=== PATIENT | female | born 1945 | race African-American/Black ===

== ENCOUNTER 2022-07-09 15:47 | Inpatient (IN) | payer OTHER ==
[2022-07-09 15:58] VITALS: BMI 25.8
[2022-07-09] MEDS ORDERED: VANCOMYCIN 1 GM in D5W (PRE-DOCKED) 1,000 MG/250 ML (RESTRICTED TO ID ONLY IVPB ONE (18:50)
[2022-07-09] MEDS ORDERED: PIPERACILLIN/TAZOB 4.5 GM 4.5 GM in DEXTROSE 5%-WATER 100 ML IVPB ONE (18:51)
[2022-07-09] MEDS ORDERED: PIPERACILLIN/TAZOB 4.5 GM 4.5 GM/100 ML BAG IVPB ONE (19:46)
[2022-07-09 20:19] LABS: BASO % 0.5 % (0-2.0); EOS % 0.9 % (0-4.5); HEMATOCRIT 28.2 % (32.4-45.2); HEMOGLOBIN 9.3 GM/dL (10.7-15.3); LYMPH % 10.5 % (8-40); MCH 27.6 pg (25.7-33.7); MCHC 32.9 g/dl (32.0-36.0); MEAN CELL VOLUME 83.9 fl (80-96); MEAN PLT VOLUME 8.4 fl (7.5-11.1); MONO % 6.7 % (3.8-10.2); NEUT % 81.4 % (42.8-82.8); PLATELET COUNT 240 10^3/uL (134-434); RBC 3.36 M/mm3 (3.60-5.2); WHITE BLOOD COUNT 5.3 K/mm3 (4.0-10.0)
[2022-07-09] MEDS ORDERED: VANCOMYCIN/WATER FOR INJ (PEG) 1,000 MG/200 ML BAG IVPB ONE (20:45)
[2022-07-09 20:47] LABS: ALBUMIN 2.9 g/dl (3.4-5.0); CALCIUM 8.9 mg/dL (8.5-10.1)
[2022-07-09 20:48] LABS: BLOOD UREA NITROGEN 11.8 mg/dL (7-18)
[2022-07-09 20:50] LABS: CREATININE 0.9 mg/dL (0.55-1.3)
[2022-07-09 20:52] LABS: BILIRUBIN,TOTAL 1.2 mg/dL (0.2-1)
[2022-07-09] MEDS ORDERED: ACETAMINOPHEN 325 MG TABLET (FP) PO PRN (21:51)
[2022-07-09] MEDS ORDERED: KETOROLAC TROMETHAMINE 15 MG/ML VIAL IVPUSH PRN (21:51)
[2022-07-09] MEDS ORDERED: ZINC OXIDE 20% TOPICAL OINTMENT 30 GM TUBE TP SCH (22:00)
[2022-07-10] MEDS: LEVOTHYROXINE NA 100 MCG TABLET (FP) PO SCH (06:10)
[2022-07-10] MEDS: FUROSEMIDE 40 MG/4 ML INJECTABLE VIAL IVPUSH SCH ×2 (08:20→13:38)
[2022-07-10] MEDS: ZINC OXIDE 20% TOPICAL OINTMENT 30 GM TUBE TP SCH ×2 (09:51→22:15)
[2022-07-10] MEDS: ENOXAPARIN NA (PORCINE) 40 MG/0.4 ML DISP.SYRIN SQ SCH (09:52)
[2022-07-10 09:56] LABS: HEMATOCRIT 29.5 % (32.4-45.2); HEMOGLOBIN 9.8 GM/dL (10.7-15.3); MCH 27.5 pg (25.7-33.7); MCHC 33.1 g/dl (32.0-36.0); MEAN CELL VOLUME 83.2 fl (80-96); PLATELET COUNT 264 10^3/uL (134-434); RBC 3.55 M/mm3 (3.60-5.2); RDW 15.6 % (11.6-15.6); WHITE BLOOD COUNT 5.6 K/mm3 (4.0-10.0)
[2022-07-10] MEDS ORDERED: CLINDAMYCIN 600MG PREMIX IVPB 600 MG/50 ML BAG IVPB SCH (10:00)
[2022-07-10 10:40] LABS: CALCIUM 8.8 mg/dL (8.5-10.1)
[2022-07-10 10:41] LABS: BLOOD UREA NITROGEN 9.3 mg/dL (7-18)
[2022-07-10 10:56] LABS: ERYTHROCYTE SEDIMENTATION RATE 104 mm/hr (0-30)
[2022-07-10] MEDS ORDERED: AMPICILLIN NA/SULBACTAM NA 3 GM in SODIUM CHLORIDE 100 ML IVPB SCH (11:30)
[2022-07-10] MEDS ORDERED: DOCUSATE SODIUM 100 MG CAPSULE (FP) PO PRN (14:58)
[2022-07-10] MEDS: AMPICILLIN NA/SULBACTAM NA 3 GM in SODIUM CHLORIDE 100 ML IVPB SCH (17:55)
[2022-07-10] MEDS: CLOTRIMAZOLE 1% CREAM TP SCH (22:15)
[2022-07-11] MEDS: AMPICILLIN NA/SULBACTAM NA 3 GM in SODIUM CHLORIDE 100 ML IVPB SCH ×3 (02:51→18:06)
[2022-07-11] MEDS: FUROSEMIDE 40 MG/4 ML INJECTABLE VIAL IVPUSH SCH ×2 (05:19→14:23)
[2022-07-11] MEDS: LEVOTHYROXINE NA 100 MCG TABLET (FP) PO SCH (06:21)
[2022-07-11] MEDS: ENOXAPARIN NA (PORCINE) 40 MG/0.4 ML DISP.SYRIN SQ SCH (09:11)
[2022-07-11 10:02] LABS: BASO % 0.2 % (0-2.0); EOS % 1.3 % (0-4.5); HEMOGLOBIN 9.9 GM/dL (10.7-15.3); LYMPH % 21.5 % (8-40); MCH 27.3 pg (25.7-33.7); MCHC 32.9 g/dl (32.0-36.0); MEAN CELL VOLUME 82.9 fl (80-96); MEAN PLT VOLUME 8.2 fl (7.5-11.1); PLATELET COUNT 252 10^3/uL (134-434); RBC 3.61 M/mm3 (3.60-5.2); RDW 16.1 % (11.6-15.6); WHITE BLOOD COUNT 5.1 K/mm3 (4.0-10.0)
[2022-07-11 10:14] LABS: POTASSIUM 3.9 mmol/L (3.5-5.1)
[2022-07-11 10:19] LABS: ALBUMIN 2.6 g/dl (3.4-5.0); BLOOD UREA NITROGEN 12.2 mg/dL (7-18); MAGNESIUM 1.9 mg/dL (1.8-2.4)
[2022-07-11 10:20] LABS: CALCIUM 8.5 mg/dL (8.5-10.1)
[2022-07-11 10:22] LABS: CREATININE 1.2 mg/dL (0.55-1.3)
[2022-07-11 10:24] LABS: BILIRUBIN,TOTAL 0.6 mg/dL (0.2-1); TOT PROT 8.6 g/dl (6.4-8.2)
[2022-07-11] MEDS: LIOTHYRONINE SODIUM 25 MCG TABLET PO SCH (10:33)
[2022-07-11] MEDS: ZINC OXIDE 20% TOPICAL OINTMENT 30 GM TUBE TP SCH ×2 (11:34→22:15)
[2022-07-11] MEDS: CLOTRIMAZOLE 1% CREAM TP SCH ×2 (11:34→22:15)
[2022-07-12] MEDS: AMPICILLIN NA/SULBACTAM NA 3 GM in SODIUM CHLORIDE 100 ML IVPB SCH ×2 (02:11→09:08)
[2022-07-12] MEDS: LEVOTHYROXINE NA 100 MCG TABLET (FP) PO SCH (05:59)
[2022-07-12 08:09] LABS: BASO % 0.4 % (0-2.0); EOS % 2.2 % (0-4.5); HEMATOCRIT 26.8 % (32.4-45.2); HEMOGLOBIN 8.8 GM/dL (10.7-15.3); MCH 27.2 pg (25.7-33.7); MCHC 32.7 g/dl (32.0-36.0); MEAN CELL VOLUME 83.2 fl (80-96); MEAN PLT VOLUME 7.7 fl (7.5-11.1); MONO % 7.9 % (3.8-10.2); NEUT % 70.5 % (42.8-82.8); PLATELET COUNT 198 10^3/uL (134-434); RBC 3.23 M/mm3 (3.60-5.2); RDW 15.8 % (11.6-15.6); WHITE BLOOD COUNT 4.5 K/mm3 (4.0-10.0)
[2022-07-12 08:26] LABS: POTASSIUM 3.5 mmol/L (3.5-5.1)
[2022-07-12 08:29] LABS: ALBUMIN 2.2 g/dl (3.4-5.0); BLOOD UREA NITROGEN 13.1 mg/dL (7-18); CALCIUM 8.2 mg/dL (8.5-10.1); MAGNESIUM 1.9 mg/dL (1.8-2.4)
[2022-07-12 08:32] LABS: CREATININE 0.9 mg/dL (0.55-1.3)
[2022-07-12 08:34] LABS: BILIRUBIN,TOTAL 0.7 mg/dL (0.2-1); TOT PROT 7.4 g/dl (6.4-8.2)
[2022-07-12] MEDS: ENOXAPARIN NA (PORCINE) 40 MG/0.4 ML DISP.SYRIN SQ SCH (09:08)
[2022-07-12] MEDS: LIOTHYRONINE SODIUM 25 MCG TABLET PO SCH (09:08)
[2022-07-12] MEDS ORDERED: PIPERACILLIN/TAZOB 4.5 GM 4.5 GM in DEXTROSE 5%-WATER 100 ML IVPB SCH (10:00)
[2022-07-12] MEDS: PIPERACILLIN/TAZOB 4.5 GM 4.5 GM in DEXTROSE 5%-WATER 100 ML IVPB SCH ×3 (13:43→18:37)
[2022-07-12] MEDS: ZINC OXIDE 20% TOPICAL OINTMENT 30 GM TUBE TP SCH ×2 (16:34→22:51)
[2022-07-12] MEDS: CLOTRIMAZOLE 1% CREAM TP SCH ×2 (16:34→22:51)
[2022-07-13] MEDS: PIPERACILLIN/TAZOB 4.5 GM 4.5 GM in DEXTROSE 5%-WATER 100 ML IVPB SCH ×3 (01:11→17:56)
[2022-07-13] MEDS: LEVOTHYROXINE NA 100 MCG TABLET (FP) PO SCH (06:02)
[2022-07-13 08:49] LABS: BASO % 0.5 % (0-2.0); EOS % 2.3 % (0-4.5); HEMATOCRIT 25.9 % (32.4-45.2); HEMOGLOBIN 8.6 GM/dL (10.7-15.3); LYMPH % 20.5 % (8-40); MCH 27.5 pg (25.7-33.7); MCHC 33.2 g/dl (32.0-36.0); MEAN CELL VOLUME 82.7 fl (80-96); MEAN PLT VOLUME 7.9 fl (7.5-11.1); MONO % 7.7 % (3.8-10.2); PLATELET COUNT 192 10^3/uL (134-434); RBC 3.13 M/mm3 (3.60-5.2); RDW 16.2 % (11.6-15.6); WHITE BLOOD COUNT 4.8 K/mm3 (4.0-10.0)
[2022-07-13 09:08] LABS: POTASSIUM 3.5 mmol/L (3.5-5.1)
[2022-07-13 09:13] LABS: ALBUMIN 2.3 g/dl (3.4-5.0); CALCIUM 8.5 mg/dL (8.5-10.1)
[2022-07-13 09:14] LABS: BLOOD UREA NITROGEN 16.1 mg/dL (7-18); MAGNESIUM 2.1 mg/dL (1.8-2.4)
[2022-07-13 09:16] LABS: CREATININE 0.9 mg/dL (0.55-1.3)
[2022-07-13 09:18] LABS: BILIRUBIN,TOTAL 0.6 mg/dL (0.2-1); TOT PROT 7.5 g/dl (6.4-8.2)
[2022-07-13] MEDS: LIOTHYRONINE SODIUM 25 MCG TABLET PO SCH (10:06)
[2022-07-13] MEDS: ENOXAPARIN NA (PORCINE) 40 MG/0.4 ML DISP.SYRIN SQ SCH (10:07)
[2022-07-13] MEDS: CLOTRIMAZOLE 1% CREAM TP SCH ×3 (10:08→22:09)
[2022-07-13] MEDS: ZINC OXIDE 20% TOPICAL OINTMENT 30 GM TUBE TP SCH ×3 (10:08→22:09)
[2022-07-14] MEDS: PIPERACILLIN/TAZOB 4.5 GM 4.5 GM in DEXTROSE 5%-WATER 100 ML IVPB SCH ×2 (01:23→10:45)
[2022-07-14] MEDS: LEVOTHYROXINE NA 100 MCG TABLET (FP) PO SCH (06:12)
[2022-07-14] MEDS: ENOXAPARIN NA (PORCINE) 40 MG/0.4 ML DISP.SYRIN SQ SCH (10:45)
[2022-07-14] MEDS: LIOTHYRONINE SODIUM 25 MCG TABLET PO SCH (10:45)
[2022-07-14] MEDS: CLOTRIMAZOLE 1% CREAM TP SCH ×2 (15:00→21:58)
[2022-07-14] MEDS: ZINC OXIDE 20% TOPICAL OINTMENT 30 GM TUBE TP SCH ×2 (17:30→21:58)
[2022-07-15] MEDS ORDERED: LEVOTHYROXINE NA 100 MCG TABLET (FP) PO SCH (07:00)
[2022-07-15 08:53] LABS: POTASSIUM 3.8 mmol/L (3.5-5.1)
[2022-07-15 08:56] LABS: CALCIUM 8.7 mg/dL (8.5-10.1)
[2022-07-15 08:57] LABS: ALBUMIN 2.5 g/dl (3.4-5.0); BLOOD UREA NITROGEN 12.8 mg/dL (7-18)
[2022-07-15 09:00] LABS: BASO % 0.7 % (0-2.0); CREATININE 0.8 mg/dL (0.55-1.3); EOS % 2.8 % (0-4.5); HEMATOCRIT 26.6 % (32.4-45.2); HEMOGLOBIN 8.8 GM/dL (10.7-15.3); LYMPH % 26.4 % (8-40); MCH 27.6 pg (25.7-33.7); MCHC 33.1 g/dl (32.0-36.0); MEAN CELL VOLUME 83.4 fl (80-96); MEAN PLT VOLUME 8.7 fl (7.5-11.1); MONO % 9.2 % (3.8-10.2); NEUT % 60.9 % (42.8-82.8); PLATELET COUNT 210 10^3/uL (134-434); RBC 3.19 M/mm3 (3.60-5.2); RDW 16.1 % (11.6-15.6); WHITE BLOOD COUNT 4.2 K/mm3 (4.0-10.0)
[2022-07-15 09:01] LABS: BILIRUBIN,TOTAL 0.8 mg/dL (0.2-1); TOT PROT 7.7 g/dl (6.4-8.2)
[2022-07-15] MEDS: ENOXAPARIN NA (PORCINE) 40 MG/0.4 ML DISP.SYRIN SQ SCH (10:57)
[2022-07-15] MEDS: CLOTRIMAZOLE 1% CREAM TP SCH (15:00)
[2022-07-15] MEDS: ZINC OXIDE 20% TOPICAL OINTMENT 30 GM TUBE TP SCH (15:00)
[2022-07-16] MEDS: CLOTRIMAZOLE 1% CREAM TP SCH ×3 (06:27→21:44)
[2022-07-16] MEDS: ZINC OXIDE 20% TOPICAL OINTMENT 30 GM TUBE TP SCH ×3 (06:28→21:44)
[2022-07-16] MEDS: LEVOTHYROXINE NA 75 MCG TABLET (FP) PO SCH ×2 (06:44→12:25)
[2022-07-16 08:09] LABS: POTASSIUM 3.9 mmol/L (3.5-5.1)
[2022-07-16 08:17] LABS: CALCIUM 8.7 mg/dL (8.5-10.1)
[2022-07-16 08:18] LABS: ALBUMIN 2.4 g/dl (3.4-5.0); BLOOD UREA NITROGEN 17.2 mg/dL (7-18)
[2022-07-16 08:19] LABS: CREATININE 0.8 mg/dL (0.55-1.3)
[2022-07-16 08:20] LABS: BASO % 0.6 % (0-2.0); EOS % 2.8 % (0-4.5); HEMATOCRIT 25.8 % (32.4-45.2); HEMOGLOBIN 8.5 GM/dL (10.7-15.3); LYMPH % 25.5 % (8-40); MCH 27.4 pg (25.7-33.7); MCHC 33.1 g/dl (32.0-36.0); MEAN PLT VOLUME 8.1 fl (7.5-11.1); MONO % 10.1 % (3.8-10.2); PLATELET COUNT 199 10^3/uL (134-434); RBC 3.11 M/mm3 (3.60-5.2); RDW 16.3 % (11.6-15.6)
[2022-07-16 08:21] LABS: TOT PROT 7.5 g/dl (6.4-8.2)
[2022-07-16 08:23] LABS: BILIRUBIN,TOTAL 0.8 mg/dL (0.2-1)
[2022-07-16] MEDS: ENOXAPARIN NA (PORCINE) 40 MG/0.4 ML DISP.SYRIN SQ SCH (11:01)
[2022-07-17] MEDS: LEVOTHYROXINE NA 75 MCG TABLET (FP) PO SCH (06:06)
[2022-07-17] MEDS: ZINC OXIDE 20% TOPICAL OINTMENT 30 GM TUBE TP SCH ×2 (13:54→22:25)
[2022-07-17] MEDS: CLOTRIMAZOLE 1% CREAM TP SCH ×2 (13:54→22:26)
[2022-07-17] MEDS ORDERED: LEVOTHYROXINE NA 75 MCG TABLET (FP) PO SCH (23:07)
[2022-07-18] MEDS: LEVOTHYROXINE 100 MCG, LEVOTHYROXINE 75 MCG PO SCH (06:21)
[2022-07-18 09:36] LABS: BASO % 0.8 % (0-2.0); EOS % 2.7 % (0-4.5); HEMATOCRIT 28.4 % (32.4-45.2); HEMOGLOBIN 9.6 GM/dL (10.7-15.3); MCHC 33.7 g/dl (32.0-36.0); MEAN CELL VOLUME 83.1 fl (80-96); MEAN PLT VOLUME 8.5 fl (7.5-11.1); MONO % 8.2 % (3.8-10.2); NEUT % 59.3 % (42.8-82.8); PLATELET COUNT 238 10^3/uL (134-434); RBC 3.42 M/mm3 (3.60-5.2); RDW 16.4 % (11.6-15.6); WHITE BLOOD COUNT 4.1 K/mm3 (4.0-10.0)
[2022-07-18 09:57] LABS: POTASSIUM 4.3 mmol/L (3.5-5.1)
[2022-07-18 10:06] LABS: ALBUMIN 2.8 g/dl (3.4-5.0); BLOOD UREA NITROGEN 18.2 mg/dL (7-18); CALCIUM 8.7 mg/dL (8.5-10.1)
[2022-07-18 10:09] LABS: CREATININE 0.8 mg/dL (0.55-1.3)
[2022-07-18 10:11] LABS: BILIRUBIN,TOTAL 0.4 mg/dL (0.2-1); TOT PROT 8.2 g/dl (6.4-8.2)
[2022-07-18] MEDS: ZINC OXIDE 20% TOPICAL OINTMENT 30 GM TUBE TP SCH ×2 (15:01→23:46)
[2022-07-18] MEDS: CLOTRIMAZOLE 1% CREAM TP SCH ×2 (15:01→23:40)
[2022-07-19] MEDS: LEVOTHYROXINE 100 MCG, LEVOTHYROXINE 75 MCG PO SCH (06:20)
[2022-07-19 08:54] VITALS: RESP 18
[2022-07-19] MEDS: ZINC OXIDE 20% TOPICAL OINTMENT 30 GM TUBE TP SCH ×2 (09:43→21:52)
[2022-07-19] MEDS: CLOTRIMAZOLE 1% CREAM TP SCH ×2 (09:43→21:52)
[2022-07-20] MEDS: LEVOTHYROXINE 100 MCG, LEVOTHYROXINE 75 MCG PO SCH (06:03)
[2022-07-20] MEDS ORDERED: ENOXAPARIN NA (PORCINE) 40 MG/0.4 ML DISP.SYRIN SQ SCH (10:00)
[2022-07-20 11:29] VITALS: BP 140/71; PULSE 90; TEMP 98.8
[2022-07-20] MEDS: CLOTRIMAZOLE 1% CREAM TP SCH (11:52)
[2022-07-20] MEDS: ZINC OXIDE 20% TOPICAL OINTMENT 30 GM TUBE TP SCH (11:52)
== END 2022-07-20 13:45 | disposition home or self-care (01) | DRG 603 ==
LOC: JER 15:47 → JERBED 20:53 → J5S 22:48
PROVIDERS: ADMIT Internal Medicine
DX: L03.115 Cellulitis of right lower limb (principal); L97.919 Non-pressure chronic ulcer of unspecified part of right lower leg with unspecified severity; I96 Gangrene, not elsewhere classified; L97.929 Non-pressure chronic ulcer of unspecified part of left lower leg with unspecified severity; L03.116 Cellulitis of left lower limb; E03.9 Hypothyroidism, unspecified; D64.9 Anemia, unspecified; I89.0 Lymphedema, not elsewhere classified; I10 Essential (primary) hypertension; K76.0 Fatty (change of) liver, not elsewhere classified; E66.9 Obesity, unspecified; E78.5 Hyperlipidemia, unspecified; N28.1 Cyst of kidney, acquired
CPT/HCPCS: 0241U-QW; 36415; 73590-TC-LT-FY; 73590-TC-RT-FY; 76705-TC; 80048; 80053; 82272; 82607; 82728; 82747; 83036; 83540; 83550; 83615; 83735; 84439; 84443; 84466; 84481; 85014; 85025; 85027; 85045; 85651; 86140; 87040; 87070; 87081; 87186; 87205; 93005; 93010; 93306-TC; 93970-TC; 97116-GP; 97162-GP; 99285-25

== ENCOUNTER 2023-02-14 15:02 | Inpatient (IN) | payer OTHER ==
[2023-02-14] MEDS ORDERED: VANCOMYCIN 1,000 MG in DEXTROSE 5%-WATER - 250 ML IVPB ONE (16:41)
[2023-02-14] MEDS ORDERED: PIPERACILLIN/TAZOB 3.375 GM 3.375 GM in DEXTROSE 5%-WATER - 50 ML IVPB ONE (16:41)
[2023-02-14] MEDS ORDERED: PIPERACILLIN/TAZOB 3.375 GM 3.375 GM/50 ML BAG IVPB ONE (17:04)
[2023-02-14 18:14] LABS: HEMOGLOBIN 8.8 GM/dL (10.7-15.3); MCH 24.8 pg (25.7-33.7); MCHC 31.4 g/dl (32.0-36.0); MEAN CELL VOLUME 79.1 fl (80-96); MEAN PLT VOLUME 8.5 fl (7.5-11.1); PLATELET COUNT 263 10^3/uL (134-434); RBC 3.54 M/mm3 (3.60-5.2); RDW 16.5 % (11.6-15.6); WHITE BLOOD COUNT 10.9 K/mm3 (4.0-10.0)
[2023-02-14] MEDS ORDERED: VANCOMYCIN 1 GRAM (PRE-DOCKED) 1,000 MG/250 ML BAG IVPB ONE (18:32)
[2023-02-14 19:01] LABS: POTASSIUM 4.1 mmol/L (3.5-5.1)
[2023-02-14 19:04] LABS: CALCIUM 8.8 mg/dL (8.5-10.1)
[2023-02-14 19:05] LABS: ALBUMIN 2.6 g/dl (3.4-5.0); BLOOD UREA NITROGEN 35.2 mg/dL (7-18)
[2023-02-14 19:10] LABS: TOT PROT 7.7 g/dl (6.4-8.2)
[2023-02-14] MEDS ORDERED: SODIUM CHLORIDE 1,000 ML IV STA (19:35)
[2023-02-14 20:35] LABS: ANISOCYTOSIS 1+; MACROCYTOSIS 1+; PLATELET ESTIMATE NORMAL
[2023-02-14 20:41] LABS: N-TERMINAL BNP 92.6 pg/ml (5-450)
[2023-02-14] MEDS ORDERED: SODIUM CHLORIDE 0.9% 500 ML INFUS.BAG IV ONE (20:45)
[2023-02-15] MEDS ORDERED: VANCOMYCIN 1 GRAM (PRE-DOCKED) 1,000 MG/200 ML BAG IVPB SCH (01:45)
[2023-02-15] MEDS ORDERED: PIPERACILLIN/TAZOB 3.375 GM 3.375 GM/50 ML BAG IVPB ONE ×2 (02:15→10:42)
[2023-02-15] MEDS: SODIUM CHLORIDE 1,000 ML IV SCH (02:26)
[2023-02-15] MEDS: PIPERACILLIN/TAZOB 3.375 GM 3.375 GM/50 ML BAG IVPB SCH ×3 (02:26→19:08)
[2023-02-15] MEDS ORDERED: VANCOMYCIN 1 GRAM (PRE-DOCKED) 1,000 MG/250 ML BAG IVPB SCH (07:00)
[2023-02-15] MEDS ORDERED: LEVOTHYROXINE NA 100 MCG TABLET (FP) ONE (07:19)
[2023-02-15] MEDS: LEVOTHYROXINE NA 100 MCG TABLET (FP) PO SCH (07:30)
[2023-02-15 08:10] LABS: MCH 25.4 pg (25.7-33.7); MCHC 32.1 g/dl (32.0-36.0); MEAN CELL VOLUME 79.1 fl (80-96); MEAN PLT VOLUME 8.1 fl (7.5-11.1); PLATELET COUNT 231 10^3/uL (134-434); RBC 3.17 M/mm3 (3.60-5.2); RDW 16.3 % (11.6-15.6); WHITE BLOOD COUNT 8.6 K/mm3 (4.0-10.0)
[2023-02-15 08:34] LABS: POTASSIUM 3.3 mmol/L (3.5-5.1)
[2023-02-15 08:38] LABS: CALCIUM 7.9 mg/dL (8.5-10.1)
[2023-02-15 08:39] LABS: ALBUMIN 2.1 g/dl (3.4-5.0); BLOOD UREA NITROGEN 31.4 mg/dL (7-18)
[2023-02-15 08:42] LABS: CREATININE 0.9 mg/dL (0.55-1.3)
[2023-02-15 08:43] LABS: BILIRUBIN,TOTAL 0.9 mg/dL (0.2-1); TOT PROT 6.5 g/dl (6.4-8.2)
[2023-02-15] MEDS ORDERED: VANCOMYCIN 1 GRAM (PRE-DOCKED) 1,000 MG/250 ML BAG IVPB ONE (08:53)
[2023-02-15] MEDS ORDERED: ENOXAPARIN NA (PORCINE) 40 MG/0.4 ML DISP.SYRIN SQ ONE (10:42)
[2023-02-15] MEDS: ENOXAPARIN NA (PORCINE) 40 MG/0.4 ML DISP.SYRIN SQ SCH (10:48)
[2023-02-15] MEDS ORDERED: VANCOMYCIN/WATER FOR INJ (PEG) 1,000 MG/200 ML BAG IVPB SCH (18:39)
[2023-02-15] MEDS ORDERED: PIPERACILLIN/TAZOB 3.375 GM 3.375 GM/50 ML BAG IVPB SCH (18:45)
[2023-02-15] MEDS ORDERED: PIPERACILLIN/TAZOB 3.375 GM 3.375 GM in DEXTROSE 5%-WATER - 50 ML IVPB SCH (18:46)
[2023-02-15 19:24] VITALS: BMI 27.4
[2023-02-15] MEDS: PIPERACILLIN/TAZOB 3.375 GM 3.375 GM in DEXTROSE 5%-WATER - 50 ML IVPB SCH ×2 (20:13→20:14)
[2023-02-15] MEDS: VANCOMYCIN 1,000 MG in DEXTROSE 5%-WATER - 250 ML IVPB SCH (20:14)
[2023-02-15] MEDS: KETOROLAC TROMETHAMINE 15 MG/ML VIAL IVPUSH PRN (23:19)
[2023-02-16] MEDS ORDERED: PIPERACILLIN/TAZOBACTAM 3.375 GM VIAL IVPB ONE (02:31)
[2023-02-16] MEDS: PIPERACILLIN/TAZOB 3.375 GM 3.375 GM in DEXTROSE 5%-WATER - 50 ML IVPB SCH ×3 (03:48→18:08)
[2023-02-16] MEDS: LEVOTHYROXINE NA 100 MCG TABLET (FP) PO SCH (06:57)
[2023-02-16] MEDS: VANCOMYCIN/WATER FOR INJ (PEG) 1,000 MG/200 ML BAG IVPB SCH ×2 (07:28→20:53)
[2023-02-16] MEDS: ENOXAPARIN NA (PORCINE) 40 MG/0.4 ML DISP.SYRIN SQ SCH (10:21)
[2023-02-16] MEDS: SODIUM CHLORIDE 1,000 ML IV SCH (10:22)
[2023-02-16] MEDS ORDERED: oxyCODONE HCL 5 MG TABLET PO PRN (15:15)
[2023-02-16] MEDS: BACITRACIN ZINC 15 GM TUBE TOPICAL OINTMENT TP SCH ×2 (15:25→23:16)
[2023-02-16 16:07] LABS: POTASSIUM 3.5 mmol/L (3.5-5.1)
[2023-02-16 16:09] LABS: CALCIUM 8.1 mg/dL (8.5-10.1)
[2023-02-16 16:10] LABS: ALBUMIN 1.9 g/dl (3.4-5.0); BLOOD UREA NITROGEN 19.5 mg/dL (7-18)
[2023-02-16 16:13] LABS: CREATININE 0.8 mg/dL (0.55-1.3)
[2023-02-16 16:15] LABS: BILIRUBIN,TOTAL 0.7 mg/dL (0.2-1); TOT PROT 6.4 g/dl (6.4-8.2)
[2023-02-16] MEDS: KETOROLAC TROMETHAMINE 15 MG/ML VIAL IVPUSH PRN (18:46)
[2023-02-16] MEDS: NYSTATIN 100,000 UNIT/GM TOPICAL CREAM 15 GM TUBE TP SCH ×2 (19:00→20:53)
[2023-02-17] MEDS: NYSTATIN 100,000 UNIT/GM TOPICAL CREAM 15 GM TUBE TP SCH ×4 (00:16→18:23)
[2023-02-17] MEDS: PIPERACILLIN/TAZOB 3.375 GM 3.375 GM in DEXTROSE 5%-WATER - 50 ML IVPB SCH ×3 (02:06→18:22)
[2023-02-17] MEDS: LEVOTHYROXINE NA 100 MCG TABLET (FP) PO SCH (07:28)
[2023-02-17] MEDS: BACITRACIN ZINC 15 GM TUBE TOPICAL OINTMENT TP SCH ×2 (09:16→21:57)
[2023-02-17] MEDS: ENOXAPARIN NA (PORCINE) 40 MG/0.4 ML DISP.SYRIN SQ SCH (09:16)
[2023-02-17] MEDS: VANCOMYCIN/WATER FOR INJ (PEG) 1,000 MG/200 ML BAG IVPB SCH ×2 (09:16→18:23)
[2023-02-17 10:21] LABS: BASO % 0.5 % (0-2.0); EOS % 2.1 % (0-4.5); HEMATOCRIT 26.5 % (32.4-45.2); HEMOGLOBIN 8.2 GM/dL (10.7-15.3); LYMPH % 17.9 % (8-40); MCH 24.3 pg (25.7-33.7); MEAN CELL VOLUME 78.4 fl (80-96); MONO % 6.4 % (3.8-10.2); NEUT % 73.1 % (42.8-82.8); PLATELET COUNT 215 10^3/uL (134-434); RBC 3.38 M/mm3 (3.60-5.2); RDW 16.5 % (11.6-15.6); WHITE BLOOD COUNT 4.9 K/mm3 (4.0-10.0)
[2023-02-17 10:30] LABS: POTASSIUM 3.9 mmol/L (3.5-5.1)
[2023-02-17 10:55] LABS: ALBUMIN 1.9 g/dl (3.4-5.0); BLOOD UREA NITROGEN 13.9 mg/dL (7-18); CREATININE 0.7 mg/dL (0.55-1.3); MAGNESIUM 1.7 mg/dL (1.8-2.4)
[2023-02-17 10:56] LABS: BILIRUBIN,TOTAL 0.7 mg/dL (0.2-1); TOT PROT 6.4 g/dl (6.4-8.2)
[2023-02-17] MEDS ORDERED: KETOROLAC TROMETHAMINE 15 MG/ML VIAL IVPUSH PRN (16:50)
[2023-02-18] MEDS: NYSTATIN 100,000 UNIT/GM TOPICAL CREAM 15 GM TUBE TP SCH ×4 (00:04→18:31)
[2023-02-18] MEDS: PIPERACILLIN/TAZOB 3.375 GM 3.375 GM in DEXTROSE 5%-WATER - 50 ML IVPB SCH ×3 (02:16→18:27)
[2023-02-18] MEDS: LEVOTHYROXINE NA 100 MCG TABLET (FP) PO SCH (06:13)
[2023-02-18] MEDS: ENOXAPARIN NA (PORCINE) 40 MG/0.4 ML DISP.SYRIN SQ SCH (09:39)
[2023-02-18] MEDS: AMINO ACIDS/PROTEIN HYDROLYS 30 ML LIQUID.PKT PO SCH (09:40)
[2023-02-18] MEDS: MULTIVITAMINS THER W-MINERALS COMBO TABLET (FP) PO SCH (09:40)
[2023-02-18 09:43] LABS: BASO % 0.5 % (0-2.0); EOS % 2.4 % (0-4.5); HEMATOCRIT 26.4 % (32.4-45.2); HEMOGLOBIN 8.4 GM/dL (10.7-15.3); LYMPH % 21.8 % (8-40); MCH 25.1 pg (25.7-33.7); MCHC 31.8 g/dl (32.0-36.0); MEAN CELL VOLUME 79.1 fl (80-96); MEAN PLT VOLUME 8.1 fl (7.5-11.1); MONO % 9.5 % (3.8-10.2); NEUT % 65.8 % (42.8-82.8); PLATELET COUNT 229 10^3/uL (134-434); RBC 3.34 M/mm3 (3.60-5.2); RDW 16.3 % (11.6-15.6); WHITE BLOOD COUNT 4.6 K/mm3 (4.0-10.0)
[2023-02-18 10:01] LABS: POTASSIUM 3.8 mmol/L (3.5-5.1)
[2023-02-18 10:06] LABS: ALBUMIN 1.9 g/dl (3.4-5.0); BLOOD UREA NITROGEN 9.3 mg/dL (7-18); MAGNESIUM 1.7 mg/dL (1.8-2.4)
[2023-02-18 10:09] LABS: CREATININE 0.7 mg/dL (0.55-1.3)
[2023-02-18 10:10] LABS: BILIRUBIN,TOTAL 0.6 mg/dL (0.2-1); TOT PROT 6.4 g/dl (6.4-8.2)
[2023-02-18] MEDS: VANCOMYCIN/WATER FOR INJ (PEG) 1,000 MG/200 ML BAG IVPB SCH ×2 (11:45→18:27)
[2023-02-18] MEDS ORDERED: MAGNESIUM OXIDE 400 MG TABLET (FP) PO ONE (12:00)
[2023-02-18] MEDS: BACITRACIN ZINC 15 GM TUBE TOPICAL OINTMENT TP SCH ×2 (12:31→21:30)
[2023-02-18] MEDS: MINERAL OIL/PET HY-PHL TOPICAL OINTMENT 454 GM JAR TP SCH (18:27)
[2023-02-18] MEDS: GABAPENTIN 100 MG CAPSULE PO SCH (18:27)
[2023-02-18] MEDS ORDERED: AMMONIUM LACTATE 12% LOTION 225 GM BOTTLE TP SCH (22:00)
[2023-02-19] MEDS: NYSTATIN 100,000 UNIT/GM TOPICAL CREAM 15 GM TUBE TP SCH ×4 (02:12→19:05)
[2023-02-19] MEDS: PIPERACILLIN/TAZOB 3.375 GM 3.375 GM in DEXTROSE 5%-WATER - 50 ML IVPB SCH ×3 (02:13→17:30)
[2023-02-19] MEDS: LEVOTHYROXINE NA 100 MCG TABLET (FP) PO SCH (06:06)
[2023-02-19] MEDS: ENOXAPARIN NA (PORCINE) 40 MG/0.4 ML DISP.SYRIN SQ SCH (09:30)
[2023-02-19] MEDS: MULTIVITAMINS THER W-MINERALS COMBO TABLET (FP) PO SCH (09:31)
[2023-02-19] MEDS: AMINO ACIDS/PROTEIN HYDROLYS 30 ML LIQUID.PKT PO SCH (09:31)
[2023-02-19] MEDS: GABAPENTIN 100 MG CAPSULE PO SCH (09:31)
[2023-02-19 10:17] LABS: BASO % 0.4 % (0-2.0); EOS % 3.4 % (0-4.5); HEMOGLOBIN 8.7 GM/dL (10.7-15.3); MCH 24.4 pg (25.7-33.7); MCHC 31.1 g/dl (32.0-36.0); MEAN CELL VOLUME 78.5 fl (80-96); MEAN PLT VOLUME 8.1 fl (7.5-11.1); MONO % 12.9 % (3.8-10.2); NEUT % 63.3 % (42.8-82.8); PLATELET COUNT 222 10^3/uL (134-434); RBC 3.57 M/mm3 (3.60-5.2); RDW 16.7 % (11.6-15.6); WHITE BLOOD COUNT 4.3 K/mm3 (4.0-10.0)
[2023-02-19 10:23] LABS: POTASSIUM 3.8 mmol/L (3.5-5.1)
[2023-02-19 10:26] LABS: CALCIUM 8.6 mg/dL (8.5-10.1)
[2023-02-19 10:27] LABS: ALBUMIN 2.1 g/dl (3.4-5.0); BLOOD UREA NITROGEN 13.2 mg/dL (7-18); MAGNESIUM 1.9 mg/dL (1.8-2.4)
[2023-02-19 10:30] LABS: CREATININE 0.6 mg/dL (0.55-1.3)
[2023-02-19 10:31] LABS: TOT PROT 6.6 g/dl (6.4-8.2)
[2023-02-19 10:32] LABS: BILIRUBIN,TOTAL 0.5 mg/dL (0.2-1)
[2023-02-19] MEDS: MINERAL OIL/PET HY-PHL TOPICAL OINTMENT 454 GM JAR TP SCH (12:18)
[2023-02-19] MEDS: BACITRACIN ZINC 15 GM TUBE TOPICAL OINTMENT TP SCH ×2 (12:19→21:33)
[2023-02-19] MEDS ORDERED: PIPERACILLIN/TAZOBACTAM 3.375 GM VIAL IVPB ONE (17:28)
[2023-02-19] MEDS: VANCOMYCIN/WATER FOR INJ (PEG) 1,000 MG/200 ML BAG IVPB SCH (19:07)
[2023-02-20] MEDS: NYSTATIN 100,000 UNIT/GM TOPICAL CREAM 15 GM TUBE TP SCH ×4 (01:28→19:18)
[2023-02-20] MEDS: PIPERACILLIN/TAZOB 3.375 GM 3.375 GM in DEXTROSE 5%-WATER - 50 ML IVPB SCH ×3 (01:29→17:50)
[2023-02-20] MEDS: LEVOTHYROXINE NA 100 MCG TABLET (FP) PO SCH (06:19)
[2023-02-20] MEDS: MULTIVITAMINS THER W-MINERALS COMBO TABLET (FP) PO SCH (09:14)
[2023-02-20] MEDS: ENOXAPARIN NA (PORCINE) 40 MG/0.4 ML DISP.SYRIN SQ SCH (09:14)
[2023-02-20] MEDS: GABAPENTIN 100 MG CAPSULE PO SCH (09:14)
[2023-02-20] MEDS: AMINO ACIDS/PROTEIN HYDROLYS 30 ML LIQUID.PKT PO SCH (09:15)
[2023-02-20] MEDS: MINERAL OIL/PET HY-PHL TOPICAL OINTMENT 454 GM JAR TP SCH (09:20)
[2023-02-20] MEDS: BACITRACIN ZINC 15 GM TUBE TOPICAL OINTMENT TP SCH ×2 (09:20→22:00)
[2023-02-20 10:16] LABS: BASO % 0.4 % (0-2.0); EOS % 3.3 % (0-4.5); HEMATOCRIT 27.2 % (32.4-45.2); HEMOGLOBIN 8.4 GM/dL (10.7-15.3); LYMPH % 23.1 % (8-40); MCH 24.6 pg (25.7-33.7); MEAN CELL VOLUME 79.5 fl (80-96); MEAN PLT VOLUME 7.9 fl (7.5-11.1); MONO % 9.2 % (3.8-10.2); PLATELET COUNT 233 10^3/uL (134-434); RBC 3.42 M/mm3 (3.60-5.2); RDW 16.7 % (11.6-15.6); WHITE BLOOD COUNT 4.3 K/mm3 (4.0-10.0)
[2023-02-20 10:38] LABS: CALCIUM 8.3 mg/dL (8.5-10.1)
[2023-02-20 10:39] LABS: BLOOD UREA NITROGEN 12.7 mg/dL (7-18); MAGNESIUM 1.7 mg/dL (1.8-2.4)
[2023-02-20 10:42] LABS: CREATININE 0.8 mg/dL (0.55-1.3)
[2023-02-20 10:43] LABS: BILIRUBIN,TOTAL 0.4 mg/dL (0.2-1); TOT PROT 6.5 g/dl (6.4-8.2)
[2023-02-20] MEDS: VANCOMYCIN/WATER FOR INJ (PEG) 1,000 MG/200 ML BAG IVPB SCH (19:17)
[2023-02-21] MEDS: NYSTATIN 100,000 UNIT/GM TOPICAL CREAM 15 GM TUBE TP SCH ×5 (01:24→23:24)
[2023-02-21] MEDS: PIPERACILLIN/TAZOB 3.375 GM 3.375 GM in DEXTROSE 5%-WATER - 50 ML IVPB SCH (01:26)
[2023-02-21] MEDS: LEVOTHYROXINE NA 100 MCG TABLET (FP) PO SCH (06:55)
[2023-02-21] MEDS: MULTIVITAMINS THER W-MINERALS COMBO TABLET (FP) PO SCH (09:44)
[2023-02-21] MEDS: AMINO ACIDS/PROTEIN HYDROLYS 30 ML LIQUID.PKT PO SCH (09:44)
[2023-02-21] MEDS: GABAPENTIN 100 MG CAPSULE PO SCH (09:44)
[2023-02-21] MEDS: ENOXAPARIN NA (PORCINE) 40 MG/0.4 ML DISP.SYRIN SQ SCH (09:44)
[2023-02-21] MEDS: MINERAL OIL/PET HY-PHL TOPICAL OINTMENT 454 GM JAR TP SCH (09:47)
[2023-02-21] MEDS: BACITRACIN ZINC 15 GM TUBE TOPICAL OINTMENT TP SCH ×2 (09:47→22:07)
[2023-02-21 10:30] LABS: BASO % 0.6 % (0-2.0); EOS % 3.1 % (0-4.5); HEMATOCRIT 27.2 % (32.4-45.2); HEMOGLOBIN 8.4 GM/dL (10.7-15.3); LYMPH % 19.9 % (8-40); MCH 24.4 pg (25.7-33.7); MEAN PLT VOLUME 8.1 fl (7.5-11.1); MONO % 9.8 % (3.8-10.2); NEUT % 66.6 % (42.8-82.8); PLATELET COUNT 222 10^3/uL (134-434); RBC 3.45 M/mm3 (3.60-5.2); RDW 16.8 % (11.6-15.6); WHITE BLOOD COUNT 4.2 K/mm3 (4.0-10.0)
[2023-02-21 11:12] LABS: POTASSIUM 4.2 mmol/L (3.5-5.1)
[2023-02-21 11:30] LABS: CALCIUM 8.6 mg/dL (8.5-10.1)
[2023-02-21 11:31] LABS: BLOOD UREA NITROGEN 14.2 mg/dL (7-18); MAGNESIUM 1.6 mg/dL (1.8-2.4)
[2023-02-21] MEDS ORDERED: POTASSIUM CHLORIDE ORAL LIQUID 20 MEQ/15 ML PO ONE (11:32)
[2023-02-21 11:34] LABS: CREATININE 0.8 mg/dL (0.55-1.3)
[2023-02-21 11:35] LABS: BILIRUBIN,TOTAL 0.4 mg/dL (0.2-1); TOT PROT 6.5 g/dl (6.4-8.2)
[2023-02-22] MEDS: LEVOTHYROXINE NA 100 MCG TABLET (FP) PO SCH (06:37)
[2023-02-22] MEDS: NYSTATIN 100,000 UNIT/GM TOPICAL CREAM 15 GM TUBE TP SCH ×2 (06:39→13:49)
[2023-02-22 09:26] LABS: BASO % 0.7 % (0-2.0); EOS % 2.4 % (0-4.5); HEMATOCRIT 27.5 % (32.4-45.2); HEMOGLOBIN 8.5 GM/dL (10.7-15.3); LYMPH % 23.4 % (8-40); MCH 24.1 pg (25.7-33.7); MCHC 30.8 g/dl (32.0-36.0); MEAN CELL VOLUME 78.4 fl (80-96); MEAN PLT VOLUME 8.3 fl (7.5-11.1); NEUT % 63.5 % (42.8-82.8); PLATELET COUNT 247 10^3/uL (134-434); RBC 3.51 M/mm3 (3.60-5.2); RDW 16.8 % (11.6-15.6); WHITE BLOOD COUNT 4.5 K/mm3 (4.0-10.0)
[2023-02-22] MEDS: AMINO ACIDS/PROTEIN HYDROLYS 30 ML LIQUID.PKT PO SCH (09:33)
[2023-02-22] MEDS: ENOXAPARIN NA (PORCINE) 40 MG/0.4 ML DISP.SYRIN SQ SCH (09:35)
[2023-02-22] MEDS: GABAPENTIN 100 MG CAPSULE PO SCH (09:35)
[2023-02-22] MEDS: MULTIVITAMINS THER W-MINERALS COMBO TABLET (FP) PO SCH (09:35)
[2023-02-22 09:46] LABS: POTASSIUM 4.4 mmol/L (3.5-5.1)
[2023-02-22 10:02] LABS: ALBUMIN 2.1 g/dl (3.4-5.0); BLOOD UREA NITROGEN 13.6 mg/dL (7-18); CALCIUM 8.1 mg/dL (8.5-10.1); MAGNESIUM 1.7 mg/dL (1.8-2.4)
[2023-02-22 10:04] LABS: CREATININE 0.7 mg/dL (0.55-1.3)
[2023-02-22 10:06] LABS: BILIRUBIN,TOTAL 0.4 mg/dL (0.2-1); TOT PROT 6.6 g/dl (6.4-8.2)
[2023-02-22] MEDS: MINERAL OIL/PET HY-PHL TOPICAL OINTMENT 454 GM JAR TP SCH (13:49)
[2023-02-22] MEDS: BACITRACIN ZINC 15 GM TUBE TOPICAL OINTMENT TP SCH (13:49)
[2023-02-22 14:35] VITALS: BP 124/63; PULSE 90; RESP 18; TEMP 97.6
== END 2023-02-22 18:54 | DRG 603 ==
LOC: JER 15:02 → JERBED 02-15 00:07 → J8W 02-15 17:33
PROVIDERS: ADMIT Internal Medicine; ATTEND Nurse Practitioner Acute Care
DX: L03.115 Cellulitis of right lower limb (principal); M62.82 Rhabdomyolysis; L97.929 Non-pressure chronic ulcer of unspecified part of left lower leg with unspecified severity; I89.0 Lymphedema, not elsewhere classified; R32 Unspecified urinary incontinence; E03.9 Hypothyroidism, unspecified; D50.9 Iron deficiency anemia, unspecified; R60.9 Edema, unspecified; L03.116 Cellulitis of left lower limb
CPT/HCPCS: 0241U-QW; 36415; 70450-TC; 71045-TC-FY; 72125-TC; 72131-TC; 73521-TC-FY; 73560-TC-LT-FY; 73560-TC-RT-FY; 76705-TC; 80053; 82550; 82553; 82728; 83540; 83550; 83735; 83880; 84439; 84443; 84484; 85025; 85027; 85651; 86140; 86704; 86709; 86803; 87040; 87340; 87517; 87635; 93005; 93010; 93971; 93971-TC; 97116-GP; 97161-GP; 99285-25; G0480